=== PATIENT | female | born 1945 | race Two or more races ===

== ENCOUNTER → 2018-09-11 | Outpatient (CLI) | payer MEDICARE, OTHER ==
[2018-09-11 15:28] LABS: ABSOLUTE BASOPHILS # (AUTO) 0.1 10^3/uL (0.0-0.2); ABSOLUTE EOSINOPHILS # (AUTO) 0.5 10^3/uL (0.0-0.6); ABSOLUTE LYMPHOCYTES (AUTO) 2.2 10^3/uL (0.5-4.7); ABSOLUTE MONOCYTES (AUTO) 0.3 10^3/uL (0.1-1.4); ABSOLUTE NEUT (AUTO) 4.5 10^3/uL (1.7-8.2); BASOPHILS % (AUTO) 0.8 % (0-2); EOSINOPHILS % (AUTO) 6.4 % (0-6); HEMATOCRIT 34.6 % (36.0-47.0); HEMOGLOBIN 11.7 g/dL (12.0-15.5); LYMPHOCYTES % (AUTO) 28.7 % (13-45); MEAN CORPUSCULAR HEMOGLOBIN 29.4 pg (27.0-33.4); MEAN CORPUSCULAR HGB CONC 33.9 g/dL (32.0-36.0); MEAN CORPUSCULAR VOLUME 87 fl (80-97); MONOCYTES % (AUTO) 4.4 % (3-13); PLATELET COUNT 294 10^3/uL (150-450); RED BLOOD COUNT 3.99 10^6/uL (3.72-5.28); RED CELL DISTRIBUTION WIDTH 13.7 % (11.5-14.0); SEGMENTED NEUTROPHILS % (AUTO) 59.7 % (42-78); TOTAL CELLS COUNTED % (AUTO) 100 %; WHITE BLOOD COUNT 7.6 10^3/uL (4.0-10.5)
[2018-09-11 15:58] LABS: ALANINE AMINOTRANSFERASE 23 U/L (9-52); ALBUMIN 3.8 g/dL (3.5-5.0); ALKALINE PHOSPHATASE 347 U/L (38-126); ANION GAP 9 (5-19); ASPARTATE AMINO TRANSFERASE 42 U/L (14-36); BILIRUBIN,DIRECT 0.4 mg/dL (0.0-0.4); BILIRUBIN,TOTAL 0.5 mg/dL (0.2-1.3); BLOOD UREA NITROGEN 24 mg/dL (7-20); C-REACTIVE PROTEIN 19.3 mg/L (<10.0); CALCIUM 9.4 mg/dL (8.4-10.2); CARBON DIOXIDE 27 mmol/L (22-30); CHLORIDE 106 mmol/L (98-107); GLUCOSE 115 mg/dL (75-110); POTASSIUM 3.7 mmol/L (3.6-5.0); SODIUM 142.3 mmol/L (137-145); TOTAL PROTEIN 8.1 g/dL (6.3-8.2)
[2018-09-11 16:24] LABS: ERYTHROCYTE SEDIMENTATION RATE 29 mm/hr (0-30)
== END ==
LOC: WC 14:59
PROVIDERS: ATTEND Nurse Practitioner
DX: L97.222 Non-pressure chronic ulcer of left calf with fat layer exposed (principal)
CPT/HCPCS: 36415; 80053; 85025; 85652; 86140

== ENCOUNTER → 2018-09-11 | Outpatient (CLI) | payer MEDICARE, OTHER ==
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
== END ==
LOC: RAD 16:23
PROVIDERS: ATTEND Nurse Practitioner
DX: L97.222 Non-pressure chronic ulcer of left calf with fat layer exposed (principal)

== ENCOUNTER → 2018-09-17 | Outpatient (CLI) | payer MEDICARE, OTHER ==
--- NOTE | 2018-09-17 17:36 | XCELERA REPORT ---
[address] [address] Lower Extremity Venous Evaluation Procedure: A bilateral duplex scan of the lower extremity veins was performed. The evaluation included responses to compression and other maneuvers with patient in the supine and standing positions to assess venous insufficiency. Right Sided Venous Evaluation Deep venous system evaluatiion shows patent veins with no obstruction or significant reflux identified. Sapheno Femoral junction: no reflux. Femoral vein reflux: no reflux. Greater Saphenous vein, Proximal thigh: reflux: no reflux. Greater Saphenous vein, Distal thigh: reflux: no reflux. Greater Saphenous vein, Proximal below knee: reflux: no reflux. No significant Perforators identified. Left Sided Venous Evaluation Deep venous system evaluatiion shows patent veins with no obstruction or significant reflux identified. Sapheno Femoral junction: no reflux. Femoral vein reflux: no reflux. Greater Saphenous vein, Proximal thigh: reflux: no reflux. Greater Saphenous vein, Distal thigh: reflux: no reflux. Greater Saphenous vein, Proximal below knee: reflux: no reflux. No significant Perforators identified. Interpretation Summary No duplex evidence of DVT or obstruction in the bilateral lower extremities. No signuificant deep or superfiicial reflux identified. Name: GREGORIA MCARTHUR Age: 72 yrs Gender: Female : 1945 Patient Status: Outpatient Patient Location: Study Date: 09/17/2018 01:32 PM Reason For Study: ULCER Ordering Physician: EMMA MARTINS Performed By: Sean Nicholson : EMMA MARTINS > Ej Vines
--- NOTE | 2018-09-17 17:38 | XCELERA REPORT ---
[address] [address] Lower Extremity Arterial Evaluation Name: GREGORIA MCARTHUR Age: 72 yrs Gender: Female : 1945 Patient Status: Outpatient Patient Location: Study Date: 09/17/2018 01:08 PM Procedure: A color flow and duplex scan of the lower extremity arteries was performed bilaterally with velocity and waveform anaylsis. Reason For Study: ULCER Ordering Physician: EMMA MARTINS Performed By: Sean Nicholson Measurements and Calculations Right Left HEAD BOYS TENNIS COACH PSV 181.7 205.4 cm/sec Prox PFA PSV -88.2 -169.9cm/sec Prox SFA PSV 100.6 169.7 cm/sec Mid SFA PSV -121.4 -139.1cm/sec Dist SFA PSV -94.9 -95.4 cm/sec Prox Pop A PSV 88.6 100.9 cm/sec Mid TERESA PSV 102.1 cm/sec Dist TERESA PSV 72.2 cm/sec Mid CREDIT OFFICER PSV 124.5 cm/sec Dist CREDIT OFFICER PSV 79.1 cm/sec Ramos Pedis PSV 66.8 -100.7cm/sec Right Side Arterial Evaluation Normal velocity and triphasic waveforms noted from the Common Femoral artery to the infrageniculate vessels . Ankle Brachial index declined. Left Side Arterial Evaluation Normal velocity and triphasic waveforms noted from the Common Femoral artery to the infrageniculate vessels . Ankle Brachial index not done due to bandaging. Interpretation Summary No hemodynamically significant lesions in the bilateral lower extremities, on duplex imaging, at rest. : EMMA MARTINS > Ej Vines
== END ==
LOC: SP 12:27
PROVIDERS: ATTEND Nurse Practitioner
DX: L97.222 Non-pressure chronic ulcer of left calf with fat layer exposed (principal)
CPT/HCPCS: 93925; 93970

== ENCOUNTER 2018-09-26 21:29 | Emergency (ER) | payer MEDICARE, OTHER ==
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
[2018-09-27 02:41] VITALS: BP 142/68
--- NOTE | 2018-09-27 08:07 | EKG REPORT ---
SEVERITY:- BORDERLINE ECG - SINUS TACHYCARDIA PROBABLE LEFT ATRIAL ABNORMALITY BORDERLINE PROLONGED QT INTERVAL : Confirmed by: Halie Weber MD 27-Sep-2018 08:07:13
== END 2018-09-27 02:41 | disposition other institution (70) ==
LOC: ER 21:29
DX: R07.9 Chest pain, unspecified (principal); R51 Headache; Y04.2XXA Assault by strike against or bumped into by another person, initial encounter; Y92.009 Unspecified place in unspecified non-institutional (private) residence as the place of occurrence of the external cause; E78.00 Pure hypercholesterolemia, unspecified; I10 Essential (primary) hypertension; Z88.0 Allergy status to penicillin; Z88.3 Allergy status to other anti-infective agents; Z88.6 Allergy status to analgesic agent; Z90.49 Acquired absence of other specified parts of digestive tract
CPT/HCPCS: 70450; 71046; 72125; 93005; 93010; 99284

== ENCOUNTER → 2018-11-16 | Outpatient (CLI) | payer MEDICARE, OTHER ==
[2018-11-16 11:46] LABS: ABSOLUTE BASOPHILS # (AUTO) 0.1 10^3/uL (0.0-0.2); ABSOLUTE EOSINOPHILS # (AUTO) 0.9 10^3/uL (0.0-0.6); ABSOLUTE MONOCYTES (AUTO) 0.3 10^3/uL (0.1-1.4); BASOPHILS % (AUTO) 1.1 % (0-2); EOSINOPHILS % (AUTO) 12.9 % (0-6); HEMATOCRIT 35.9 % (36.0-47.0); HEMOGLOBIN 12.3 g/dL (12.0-15.5); LYMPHOCYTES % (AUTO) 26.8 % (13-45); MEAN CORPUSCULAR HEMOGLOBIN 29.4 pg (27.0-33.4); MEAN CORPUSCULAR HGB CONC 34.2 g/dL (32.0-36.0); MEAN CORPUSCULAR VOLUME 86 fl (80-97); MONOCYTES % (AUTO) 3.7 % (3-13); PLATELET COUNT 225 10^3/uL (150-450); RED BLOOD COUNT 4.17 10^6/uL (3.72-5.28); RED CELL DISTRIBUTION WIDTH 13.9 % (11.5-14.0); SEGMENTED NEUTROPHILS % (AUTO) 55.5 % (42-78); TOTAL CELLS COUNTED % (AUTO) 100 %; WHITE BLOOD COUNT 7.3 10^3/uL (4.0-10.5)
[2018-11-16 12:10] LABS: ALANINE AMINOTRANSFERASE 45 U/L (9-52); ALBUMIN 4.4 g/dL (3.5-5.0); ALKALINE PHOSPHATASE 462 U/L (38-126); ANION GAP 12 (5-19); ASPARTATE AMINO TRANSFERASE 57 U/L (14-36); BILIRUBIN,DIRECT 0.4 mg/dL (0.0-0.4); BILIRUBIN,TOTAL 0.7 mg/dL (0.2-1.3); BLOOD UREA NITROGEN 25 mg/dL (7-20); C-REACTIVE PROTEIN 12.8 mg/L (<10.0); CALCIUM 9.9 mg/dL (8.4-10.2); CARBON DIOXIDE 24 mmol/L (22-30); CHLORIDE 104 mmol/L (98-107); GLUCOSE 93 mg/dL (75-110); POTASSIUM 4.4 mmol/L (3.6-5.0); SODIUM 139.6 mmol/L (137-145); TOTAL PROTEIN 8.9 g/dL (6.3-8.2)
[2018-11-16 12:17] LABS: ERYTHROCYTE SEDIMENTATION RATE 85 mm/hr (0-30)
== END ==
LOC: WC 10:25
PROVIDERS: ATTEND Surgery
DX: L97.222 Non-pressure chronic ulcer of left calf with fat layer exposed (principal)
CPT/HCPCS: 36415; 80053; 85025; 85652; 86140

== ENCOUNTER → 2018-12-18 | Outpatient (CLI) | payer MEDICARE, OTHER ==
[2018-12-18 16:28] LABS: ABSOLUTE BASOPHILS # (AUTO) 0.1 10^3/uL (0.0-0.2); ABSOLUTE EOSINOPHILS # (AUTO) 0.7 10^3/uL (0.0-0.6); ABSOLUTE LYMPHOCYTES (AUTO) 1.4 10^3/uL (0.5-4.7); ABSOLUTE MONOCYTES (AUTO) 0.3 10^3/uL (0.1-1.4); ABSOLUTE NEUT (AUTO) 4.7 10^3/uL (1.7-8.2); BASOPHILS % (AUTO) 0.9 % (0-2); EOSINOPHILS % (AUTO) 9.5 % (0-6); HEMATOCRIT 35.1 % (36.0-47.0); HEMOGLOBIN 11.7 g/dL (12.0-15.5); LYMPHOCYTES % (AUTO) 19.7 % (13-45); MEAN CORPUSCULAR HEMOGLOBIN 28.9 pg (27.0-33.4); MEAN CORPUSCULAR HGB CONC 33.4 g/dL (32.0-36.0); MEAN CORPUSCULAR VOLUME 86 fl (80-97); MONOCYTES % (AUTO) 3.6 % (3-13); PLATELET COUNT 297 10^3/uL (150-450); RED BLOOD COUNT 4.06 10^6/uL (3.72-5.28); RED CELL DISTRIBUTION WIDTH 13.7 % (11.5-14.0); SEGMENTED NEUTROPHILS % (AUTO) 66.3 % (42-78); TOTAL CELLS COUNTED % (AUTO) 100 %
[2018-12-18 16:58] LABS: ALANINE AMINOTRANSFERASE 63 U/L (9-52); ALBUMIN 3.9 g/dL (3.5-5.0); ALKALINE PHOSPHATASE 605 U/L (38-126); ANION GAP 11 (5-19); ASPARTATE AMINO TRANSFERASE 83 U/L (14-36); BILIRUBIN,DIRECT 0.4 mg/dL (0.0-0.4); BILIRUBIN,TOTAL 0.4 mg/dL (0.2-1.3); BLOOD UREA NITROGEN 23 mg/dL (7-20); CALCIUM 9.4 mg/dL (8.4-10.2); CARBON DIOXIDE 24 mmol/L (22-30); CHLORIDE 106 mmol/L (98-107); GLUCOSE 106 mg/dL (75-110); SODIUM 140.6 mmol/L (137-145); TOTAL PROTEIN 8.8 g/dL (6.3-8.2)
[2018-12-18 17:16] LABS: ERYTHROCYTE SEDIMENTATION RATE 97 mm/hr (0-30)
== END ==
LOC: WC 15:13
PROVIDERS: ATTEND Nurse Practitioner Family
DX: L97.222 Non-pressure chronic ulcer of left calf with fat layer exposed (principal)
CPT/HCPCS: 36415; 80053; 85025; 85652; 86140

== ENCOUNTER 2019-02-20 08:50 | Inpatient (IN) | payer MEDICARE, OTHER ==
[2019-02-20 10:01] LABS: ABSOLUTE BASOPHILS # (AUTO) 0.1 10^3/uL (0.0-0.2); ABSOLUTE MONOCYTES (AUTO) 0.8 10^3/uL (0.1-1.4); BASOPHILS % (AUTO) 0.3 % (0-2); HEMATOCRIT 32.2 % (36.0-47.0); HEMOGLOBIN 10.7 g/dL (12.0-15.5); LYMPHOCYTES % (AUTO) 5.6 % (13-45); MEAN CORPUSCULAR HEMOGLOBIN 28.3 pg (27.0-33.4); MEAN CORPUSCULAR HGB CONC 33.3 g/dL (32.0-36.0); MEAN CORPUSCULAR VOLUME 85 fl (80-97); MONOCYTES % (AUTO) 4.2 % (3-13); PLATELET COUNT 467 10^3/uL (150-450); RED BLOOD COUNT 3.79 10^6/uL (3.72-5.28); RED CELL DISTRIBUTION WIDTH 13.6 % (11.5-14.0); SEGMENTED NEUTROPHILS % (AUTO) 89.9 % (42-78); TOTAL CELLS COUNTED % (AUTO) 100 %; WHITE BLOOD COUNT 17.8 10^3/uL (4.0-10.5)
[2019-02-20 10:17] LABS: ALANINE AMINOTRANSFERASE 40 U/L (9-52); ALBUMIN 3.1 g/dL (3.5-5.0); ALKALINE PHOSPHATASE 673 U/L (38-126); ANION GAP 11 (5-19); ASPARTATE AMINO TRANSFERASE 40 U/L (14-36); BILIRUBIN,TOTAL 1.5 mg/dL (0.2-1.3); BLOOD UREA NITROGEN 21 mg/dL (7-20); CALCIUM 8.7 mg/dL (8.4-10.2); CARBON DIOXIDE 24 mmol/L (22-30); CHLORIDE 96 mmol/L (98-107); GLUCOSE 117 mg/dL (75-110); POTASSIUM 3.8 mmol/L (3.6-5.0); SODIUM 131.4 mmol/L (137-145); TOTAL PROTEIN 7.7 g/dL (6.3-8.2)
[2019-02-20 11:07] LABS: VENOUS BLOOD BASE EXCESS -0.2 mmol/L; VENOUS BLOOD HCO3 22.8 mmol/L (20-32); VENOUS BLOOD PCO2 31.8 mmHg (35-63); VENOUS BLOOD PH 7.47 (7.30-7.42)
--- NOTE | 2019-02-20 11:32 | RADIOLOGY REPORT (SQ) ---
EXAM DESCRIPTION: ANKLE LEFT COMPLETE COMPLETED DATE/TIME: 02/20/2019 11:10 am REASON FOR STUDY: ulcer, ? osteo COMPARISON: 09/11/2018 NUMBER OF VIEWS: Three views. TECHNIQUE: AP, lateral, and oblique radiographic images acquired of the left ankle. LIMITATIONS: None. FINDINGS: MINERALIZATION: Osteopenia. BONES: Old trimalleolar fracture. Demineralized cortex adjacent to the medial malleolar screw heads. No acute findings. JOINTS: Intact. SOFT TISSUES: No foreign body. OTHER: No other significant finding. IMPRESSION: No evidence of osteomyelitis. TECHNICAL DOCUMENTATION: JOB ID: [id number] [employer]- All Rights Reserved Reading location - IP/workstation name: [email or web address]
--- NOTE | 2019-02-20 11:36 | RADIOLOGY REPORT (SQ) ---
EXAM DESCRIPTION: CHEST 2 VIEWS COMPLETED DATE/TIME: 02/20/2019 11:10 am REASON FOR STUDY: fever COMPARISON: 09/27/2018 NUMBER OF VIEWS: Two view. TECHNIQUE: Frontal and lateral radiographic views of the chest acquired. LIMITATIONS: None. FINDINGS: LUNGS AND PLEURA: No opacities, masses or pneumothorax. No pleural effusion. Attenuated bl ood vessels and flattened zia-diaphragms. MEDIASTINUM AND HILAR STRUCTURES: No masses. No contour abnormalities. HEART AND VASCULAR STRUCTURES: Heart normal in size and contour. No evidence for failure. BONES: No acute findings. HARDWARE: None in the chest. OTHER: No other significant finding. IMPRESSION: COPD. NO ACUTE RADIOGRAPHIC FINDING IN THE CHEST. TECHNICAL DOCUMENTATION: JOB ID: [id number] [employer]- All Rights Reserved Reading location - IP/workstation name: [email or web address]
[2019-02-20] MEDS ORDERED: CEFTRIAXONE 1 GM/D5W RTU 1 GM/50 ML RTUPB IV ONE (12:14)
[2019-02-20] MEDS ORDERED: VANCOMYCIN HCL INJ 1000 MG VIAL IV ONE (12:14)
--- NOTE | 2019-02-20 12:34 | ER Document Report ---
Entered by SILVER SHELL SCRIBE 02/20/19 1039 Acting as scribe for:WARREN GALAVIZ DO ED General - General Chief Complaint: Fever Stated Complaint: FEVER Time Seen by Provider: 02/20/19 10:15 TRAVEL OUTSIDE OF THE [place] IN LAST 30 DAYS: No - Related Data Allergies/Adverse Reactions: doxycycline [Doxycycline] Allergy (Verified 07/16/15 12:14) levofloxacin [From Levaquin] Allergy (Verified 07/16/15 12:13) Penicillins Allergy (Verified 07/14/15 09:12) acetaminophen [From Percocet] Adverse Reaction (Verified 02/17/16 20:18) hydrocodone [Hydrocodone] Adverse Reaction (Verified 07/16/15 12:14) ketorolac Adverse Reaction (Verified 07/16/15 12:14) oxycodone HCl [From Percocet] Adverse Reaction (Verified 02/17/16 20:18) tramadol HCl [From Ultram] Adverse Reaction (Verified 07/16/15 12:15) Hyclate Allergy (Uncoded 07/16/15 12:15) Past Medical History - Social History Smoking Status: Unknown if Ever Smoked Family History: Malignancy, Other Patient has suicidal ideation: No Patient has homicidal ideation: No - Past Medical History Cardiac Medical History: Reports: Hx Hypercholesterolemia, Hx Hypertension Renal/ Medical History: Denies: Hx Peritoneal Dialysis Musculoskeletal Medical History: Reports Hx Arthritis - low back pain R sciatica Past Surgical History: Reports: Hx Cholecystectomy, Hx Orthopedic Surgery - Immunizations Immunizations up to date: Yes Hx Diphtheria, Pertussis, Tetanus Vaccination: Yes Physical Exam - Vital signs Vitals: Temp Pulse Resp BP Pulse Ox 100.4 F 102 H 16 145/61 H 97 02/20/19 09:14 02/20/19 09:14 02/20/19 09:14 02/20/19 09:14 02/20/19 09:14 Course - Re-evaluation Re-evalutation: 02/20/19 12:31 CBC shows leukocytosis with a white count of 10.17.8, anemia with hemoglobin 10.7, platelets elevated at 467, venous blood gas is not acidotic, CMP shows hyponatremia with a sodium 131.4, BUN is slightly elevated at 21, glucose elevated but nonfasting at 117, lactic acid is normal, total and direct bilirubin both elevated as are AST and alk phos however all of these are fairly mild elevations, patient is not having any abdominal symptoms or tenderness, no nausea. Ankle x-ray does not reveal any evidence of osteomyelitis, chest x-ray is unremarkable. Patient is not septic, the obvious source of infection at this time is her left ankle however we are also getting a urinalysis just to double check. There is a moderate amount of foul-smelling drainage from the painful and obviously infected ulcer to the left ankle. Patient was discussed with Dr. Montero who agrees to admit the patient to his service on the medical floor. Treatment initiated with Rocephin and vancomycin. - Vital Signs Vital signs: Temp Pulse Resp BP Pulse Ox 100.4 F 102 H 16 145/61 H 97 02/20/19 09:14 02/20/19 09:14 02/20/19 09:14 02/20/19 09:14 02/20/19 09:14 - Laboratory Result Diagrams: 02/20/19 09:35 02/20/19 09:35 Laboratory results interpreted by me: 02/20/19 02/20/19 02/20/19 09:35 09:35 10:30 WBC 17.8 H Hgb 10.7 L Hct 32.2 L Plt Count 467 H Seg Neutrophils % 89.9 H Lymphocytes % 5.6 L Absolute Neutrophils 16.0 H VBG pH 7.47 H VBG pCO2 31.8 L Sodium 131.4 L Chloride 96 L BUN 21 H Est GFR (Non-Af Amer) 55 L Glucose 117 H Total Bilirubin 1.5 H Direct Bilirubin 1.0 H AST 40 H Alkaline Phosphatase 673 H Albumin 3.1 L Discharge - Discharge Clinical Impression: Cellulitis of left ankle Ulcer of left ankle Qualifiers: Non-pressure ulcer stage: with fat layer exposed Qualified Code(s): L97.322 - Non-pressure chronic ulcer of left ankle with fat layer exposed Condition: Fair Disposition: ADMITTED INPATIENT Admitting Provider: Kylah (Hospitalist) Unit Admitted: Medical Floor I personally performed the services described in the documentation, reviewed and edited the documentation which was dictated to the scribe in my presence, and it accurately records my words and actions.
[2019-02-20 13:05] LABS: APPEARANCE,URINE CLEAR; BILIRUBIN,URINE NEGATIVE (NEGATIVE); COLOR,URINE YELLOW; GLUCOSE, URINE NEGATIVE (NEGATIVE); KETONES,URINE TRACE mg/dL (NEGATIVE); LEUKOCYTE ESTERASE,URINE NEGATIVE (NEGATIVE); NITRITE,URINE NEGATIVE (NEGATIVE); PROTEIN,URINE NEGATIVE (NEGATIVE); URINE SPECIFIC GRAVITY 1.016
[2019-02-20] MEDS ORDERED: PROMETHAZINE HCL INJ 25 MG/1 ML VIAL IV PRN (13:17)
[2019-02-20] MEDS ORDERED: ONDANSETRON HCL INJ/PF 4 MG/2 ML SDV IV PRN (13:17)
[2019-02-20] MEDS ORDERED: OXYCODONE-ACETAMINOPHEN 5-325 MG TABLET PO PRN (13:17)
[2019-02-20] MEDS ORDERED: TEMAZEPAM 7.5 MG CAPSULE PO PRN (13:17)
[2019-02-20] MEDS ORDERED: IPRATROPIUM/ALBUTEROL 0.5-2.5 MG/3 ML AMPUL NEB PRN (13:17)
[2019-02-20] MEDS ORDERED: NORMAL SALINE 1000 ML 1,000 ML IV PRN (13:21)
[2019-02-20] MEDS ORDERED: HYDRALAZINE HCL INJ/PF 20 MG/1 ML SDV IV PRN (13:24)
[2019-02-20] MEDS ORDERED: VANCOMYCIN HCL 0 MG in DEXTROSE 5%-WATER 250 ML IV NR (13:30)
--- NOTE | 2019-02-20 13:51 | PDOC H&P ---
History of Present Illness Admission Date/PCP: 02/20/19 12:40 History of Present Illness: GREGORIA MCARTHUR is a 73 year old female past medical history of hypertension presented to ED complaining of on and off fever for the last 3 weeks and left lower extremity chronic wound. Stating that she has had left lower extremity anterior mas chronic ulcer and has been receiving wound care as outpatient. She is stating that it is not getting any better, and it is quite itchy with sharp pain upon moving. Apart from recent onset on and off fever over the last 3 weeks and chronic left lower extremity wound she reports to be in good health. She denies any fever, fatigue, shortness of breath, chest pain, nausea, vomiting, abdominal pain, diarrhea, constipation, cramps, history of CAD,diab etes, CVA or PAD. In ED she was found to have leukocytosis, fever and inspection of the wound show ed smelling wound distal mas venous discharge. Will start on vancomycin and ceftriaxone and hospital was consulted for admission. Left lower extremity x-ray was negative for osteomyelitis. Records show that patient has been seen at [facility] and has had bilateral lower extremity Doppler on 12/2018 which was negative for DVT or any reflexes. Past Medical History Cardiac Medical History: Reports: Hyperlipidema, Hypertension Musculoskeltal Medical History: Reports: Arthritis - low back pain R sciatica Past Surgical History Past Surgical History: Reports: Cholecystectomy, Orthopedic Surgery Social History Smoking Status: Unknown if Ever Smoked Frequency of Alcohol Use: None Hx Recreational Drug Use: No Hx Prescription Drug Abuse: No Family History Family History: Malignancy, Other Parental Family History Reviewed: Yes Children Family History Reviewed: Yes Sibling(s) Family History Reviewed.: Yes Medication/Allergy Allergies/Adverse Reactions: doxycycline [Doxycycline] Allergy (Verified 07/16/15 12:14) levofloxacin [From Levaquin] Allergy (Verified 07/16/15 12:13) Penicillins Allergy (Verified 07/14/15 09:12) acetaminophen [From Percocet] Adverse Reaction (Verified 02/17/16 20:18) hydrocodone [Hydrocodone] Adverse Reaction (Verified 07/16/15 12:14) ketorolac Adverse Reaction (Verified 07/16/15 12:14) oxycodone HCl [From Percocet] Adverse Reaction (Verified 02/17/16 20:18) tramadol HCl [From Ultram] Adverse Reaction (Verified 07/16/15 12:15) Hyclate Allergy (Uncoded 07/16/15 12:15) Review of Systems Review of Systems: as per hpi Physical Exam Vital Signs: Temp Pulse Resp BP Pulse Ox 100.4 F 102 H 16 145/61 H 97 02/20/19 09:14 02/20/19 09:14 02/20/19 09:14 02/20/19 09:14 02/20/19 09:14 Intake & Output 02/19/19 02/20/19 02/21/19 06:59 06:59 06:59 Intake Total 50 Output Total 250 Balance -200 General appearance: PRESENT: no acute distress, well-developed, well-nourished Head exam: PRESENT: atraumatic, normocephalic Eye exam: PRESENT: conjunctiva pink, EOMI, PERRLA. ABSENT: scleral icterus Ear exam: PRESENT: normal external ear exam Mouth exam: PRESENT: moist, tongue midline Neck exam: ABSENT: carotid bruit, JVD, lymphadenopathy, thyromegaly Respiratory exam: PRESENT: clear to auscultation sudhakar. ABSENT: rales, rhonchi, wheezes Cardiovascular exam: PRESENT: RRR. ABSENT: diastolic murmur, rubs, systolic murmur Pulses: PRESENT: normal dorsalis pedis pul Vascular exam: PRESENT: normal capillary refill GI/Abdominal exam: PRESENT: normal bowel sounds, soft. ABSENT: distended, guarding, mass, organolmegaly, rebound, tenderness Rectal exam: PRESENT: deferred Extremities exam: PRESENT: full ROM. ABSENT: calf tenderness, clubbing, pedal edema Neurological exam: PRESENT: alert, awake, oriented to person, oriented to place, oriented to time, oriented to situation, CN II-XII grossly intact. ABSENT: motor sensory deficit Psychiatric exam: PRESENT: appropriate affect, normal mood. ABSENT: homicidal ideation, suicidal ideation Skin exam: PRESENT: dry, warm, other - Left distal mas ulcerated and infected wound about 10 x 10 cm, foul-smelling with greenish discharge.. ABSENT: cyanosis, rash Results Laboratory Results: 02/20/19 09:35 02/20/19 09:35 02/20/19 02/20/19 02/20/19 09:35 09:35 09:35 WBC 17.8 H RBC 3.79 Hgb 10.7 L Hct 32.2 L MCV 85 MCH 28.3 MCHC 33.3 RDW 13.6 Plt Count 467 H Seg Neutrophils % 89.9 H Lymphocytes % 5.6 L Monocytes % 4.2 Eosinophils % 0.0 Basophils % 0.3 Absolute Neutrophils 16.0 H Absolute Lymphocytes 1.0 Absolute Monocytes 0.8 Absolute Eosinophils 0.0 Absolute Basophils 0.1 VBG pH VBG pCO2 VBG HCO3 VBG Base Excess Sodium 131.4 L Potassium 3.8 Chloride 96 L Carbon Dioxide 24 Anion Gap 11 BUN 21 H Creatinine 0.99 Est GFR ( Amer) > 60 Est GFR (Non-Af Amer) 55 L Glucose 117 H Lactic Acid Calcium 8.7 Total Bilirubin 1.5 H AST 40 H ALT 40 Alkaline Phosphatase 673 H Total Protein 7.7 Albumin 3.1 L Lipase 109.2 Urine Color Urine Appearance Urine pH Ur Specific [place] Urine Protein Urine Glucose (UA) Urine Ketones Urine Blood Urine Nitrite Ur Leukocyte Esterase Urine WBC (Auto) Urine RBC (Auto) 02/20/19 02/20/19 02/20/19 10:30 10:30 12:45 WBC RBC Hgb Hct MCV MCH MCHC RDW Plt Count Seg Neutrophils % Lymphocytes % Monocytes % Eosinophils % Basophils % Absolute Neutrophils Absolute Lymphocytes Absolute Monocytes Absolute Eosinophils Absolute Basophils VBG pH 7.47 H VBG pCO2 31.8 L VBG HCO3 22.8 VBG Base Excess -0.2 Sodium Potassium Chloride Carbon Dioxide Anion Gap BUN Creatinine Est GFR ( Amer) Est GFR (Non-Af Amer) Glucose Lactic Acid 0.9 Calcium Total Bilirubin AST ALT Alkaline Phosphatase Total Protein Albumin Lipase Urine Color YELLOW Urine Appearance CLEAR Urine pH 6.0 Ur Specific [place] 1.016 Urine Protein NEGATIVE Urine Glucose (UA) NEGATIVE Urine Ketones TRACE H Urine Blood NEGATIVE Urine Nitrite NEGATIVE Ur Leukocyte Esterase NEGATIVE Urine WBC (Auto) 3 Urine RBC (Auto) 1 Impressions: Chest X-Ray 02/20/19 10:16 IMPRESSION: COPD. NO ACUTE RADIOGRAPHIC FINDING IN THE CHEST. Ankle X-Ray 02/20/19 10:56 IMPRESSION: No evidence of osteomyelitis. Assessment and Plan - Diagnosis (1) Infected ulcer of skin Is this a current diagnosis for this admission?: No Plan: Infection of chronic wound of the left anterior mas and ankle. Likely polymicrobial from skin evin. X-ray negative for osteomyelitis. If in doubt will obtain MRI of left lower extremity. Will start wound care and IV ceftriaxone and vancomycin narrow spectrum based on results of C/S. Follow wound on blood cultures. 12/2018 patient had bilateral lower extremity venous Doppler which was negative for any DVT or reflux. Pending hemoglobin A1c, lipid,, CRP and ESR. (3) Fever Is this a current diagnosis for this admission?: No Plan: Leukocytosis likely due to infected left lower extremity wounds. Continue empiric IV antibiotics, follow wound and blood cultures. (4) HTN (hypertension) Is this a current diagnosis for this admission?: No Plan: Takes amlodipine at home. Restart home meds. Adjust meds as needed. IV hydr alazine as needed.
[2019-02-20 14:15] LABS: CHOLESTEROL 216.92 mg/dL (0-200); TRIGLYCERIDES 58 mg/dL (<150)
[2019-02-20 14:26] LABS: DIRECT LDL 163 mg/dL (<100)
--- NOTE | 2019-02-20 14:41 | ER Document Report ---
Entered by SILVER SHELL SCRIBE 02/20/19 1406 Acting as scribe for:WARREN GALAVIZ DO ED General - General Chief Complaint: Fever Stated Complaint: FEVER Time Seen by Provider: 02/20/19 10:15 Mode of Arrival: Ambulatory Information source: Patient Notes: 73-year-old female that presents to the emergency department today with complaints of intermittent fevers with associated headaches for the last x3 weeks. Patient mentions an ulcer to her left lower extremity that she appears unconcerned with stating that she has been following up with wound care for this. Patient denies any nausea, vomiting, diarrhea, or urinary symptoms. TRAVEL OUTSIDE OF THE [place] IN LAST 30 DAYS: No - Related Data Allergies/Adverse Reactions: doxycycline [Doxycycline] Allergy (Verified 07/16/15 12:14) levofloxacin [From Levaquin] Allergy (Verified 07/16/15 12:13) Penicillins Allergy (Verified 07/14/15 09:12) acetaminophen [From Percocet] Adverse Reaction (Verified 02/17/16 20:18) hydrocodone [Hydrocodone] Adverse Reaction (Verified 07/16/15 12:14) ketorolac Adverse Reaction (Verified 07/16/15 12:14) oxycodone HCl [From Percocet] Adverse Reaction (Verified 02/17/16 20:18) tramadol HCl [From Ultram] Adverse Reaction (Verified 07/16/15 12:15) Hyclate Allergy (Uncoded 07/16/15 12:15) Past Medical History - General Information source: Patient - Social History Smoking Status: Unknown if Ever Smoked Frequency of alcohol use: None Drug Abuse: None Lives with: Family Family History: Reviewed & Not Pertinent, Malignancy, Other Patient has suicidal ideation: No Patient has homicidal ideation: No - Past Medical History Cardiac Medical History: Reports: Hx Hypercholesterolemia, Hx Hypertension Musculoskeletal Medical History: Reports Hx Arthritis - low back pain R sciatica Past Surgical History: Reports: Hx Cholecystectomy, Hx Orthopedic Surgery - Immunizations Immunizations up to date: Yes Hx Diphtheria, Pertussis, Tetanus Vaccination: Yes Review of Systems - Review of Systems Constitutional: See HPI, Fever EENT: No symptoms reported Cardiovascular: No symptoms reported Respiratory: No symptoms reported Gastrointestinal: denies: Diarrhea, Nausea, Vomiting Genitourinary: denies: Burning, Dysuria Female Genitourinary: No symptoms reported Musculoskeletal: No symptoms reported Skin: No symptoms reported Hematologic/Lymphatic: No symptoms reported Neurological/Psychological: See HPI, Headaches -: Yes All other systems reviewed and negative Physical Exam - Vital signs Vitals: Temp Pulse Resp BP Pulse Ox 100.4 F 102 H 16 145/61 H 97 02/20/19 09:14 02/20/19 09:14 02/20/19 09:14 02/20/19 09:14 02/20/19 09:14 - Notes Notes: PHYSICAL EXAM GENERAL: Alert, interacts well. No acute distress. HEAD: Normocephalic, atraumatic. EYES: Pupils equal, round, and reactive to light. Extraocular movements intact. ENT: Oral mucosa moist, tongue midline. NECK: Full range of motion. Supple. Trachea midline. LUNGS: Clear to auscultation bilaterally, no wheezes, rales, or rhonchi. No respiratory distress. HEART: Regular rate and rhythm. No murmurs, gallops, or rubs. ABDOMEN: Soft, non-tender. Non-distended. Bowel sounds present in all 4 quadrants. No guarding, rigidity, or rebound. EXTREMITIES: Moves all 4 extremities spontaneously. No edema, radial and dorsalis pedis pulses 2/4 bilaterally. No cyanosis. NEUROLOGICAL: Alert and oriented x3. Normal speech. PSYCH: Normal affect, normal mood. SKIN: 9.5cm x 7cm foul smelling wound that appears somewhat punched out to the left medial malleolus tibia. Green colored discharge from wound. Center of wound appears somewhat necrotic. There is surrounding erythema with warmth. It is tender palpation. There is no lymphangitic streaking. Course - Vital Signs Vital signs: Temp Pulse Resp BP Pulse Ox 100.4 F 102 H 16 145/61 H 97 02/20/19 09:14 02/20/19 09:14 02/20/19 09:14 02/20/19 09:14 02/20/19 09:14 - Laboratory Result Diagrams: 02/20/19 09:35 02/20/19 09:35 Laboratory results interpreted by me: 02/20/19 02/20/19 02/20/19 09:35 09:35 09:35 WBC 17.8 H Hgb 10.7 L Hct 32.2 L Plt Count 467 H Seg Neutrophils % 89.9 H Lymphocytes % 5.6 L Absolute Neutrophils 16.0 H VBG pH VBG pCO2 Sodium 131.4 L Chloride 96 L BUN 21 H Est GFR (Non-Af Amer) 55 L Glucose 117 H Total Bilirubin 1.5 H Direct Bilirubin 1.0 H AST 40 H Alkaline Phosphatase 673 H Albumin 3.1 L Cholesterol 216.92 H LDL Cholesterol Direct 163 H HDL Cholesterol 22 L 02/20/19 10:30 WBC Hgb Hct Plt Count Seg Neutrophils % Lymphocytes % Absolute Neutrophils VBG pH 7.47 H VBG pCO2 31.8 L Sodium Chloride BUN Est GFR (Non-Af Amer) Glucose Total Bilirubin Direct Bilirubin AST Alkaline Phosphatase Albumin Cholesterol LDL Cholesterol Direct HDL Cholesterol Discharge - Discharge Clinical Impression: Cellulitis of left ankle Ulcer of left ankle Qualifiers: Non-pressure ulcer stage: with fat layer exposed Qualified Code(s): L97.322 - Non-pressure chronic ulcer of left ankle with fat layer exposed Condition: Fair Disposition: ADMITTED INPATIENT I personally performed the services described in the documentation, reviewed and edited the documentation which was dictated to the scribe in my presence, and it accurately records my words and actions.
[2019-02-20] MEDS: NORMAL SALINE 1000 ML 1,000 ML IV PRN (17:29)
[2019-02-20] MEDS ORDERED: ACETAMINOPHEN WITH CODEINE #3 TABLET PO PRN (23:38)
[2019-02-21] MEDS: NORMAL SALINE 1000 ML 1,000 ML IV PRN ×2 (03:10→16:42)
[2019-02-21 06:39] LABS: ABSOLUTE BASOPHILS # (AUTO) 0.1 10^3/uL (0.0-0.2); ABSOLUTE LYMPHOCYTES (AUTO) 1.3 10^3/uL (0.5-4.7); ABSOLUTE MONOCYTES (AUTO) 1.1 10^3/uL (0.1-1.4); ABSOLUTE NEUT (AUTO) 14.9 10^3/uL (1.7-8.2); BASOPHILS % (AUTO) 0.3 % (0-2); EOSINOPHILS % (AUTO) 0.1 % (0-6); HEMATOCRIT 29.7 % (36.0-47.0); HEMOGLOBIN 9.8 g/dL (12.0-15.5); LYMPHOCYTES % (AUTO) 7.2 % (13-45); MEAN CORPUSCULAR HEMOGLOBIN 28.2 pg (27.0-33.4); MEAN CORPUSCULAR HGB CONC 33.2 g/dL (32.0-36.0); MEAN CORPUSCULAR VOLUME 85 fl (80-97); MONOCYTES % (AUTO) 6.6 % (3-13); PLATELET COUNT 413 10^3/uL (150-450); RED BLOOD COUNT 3.49 10^6/uL (3.72-5.28); RED CELL DISTRIBUTION WIDTH 13.5 % (11.5-14.0); SEGMENTED NEUTROPHILS % (AUTO) 85.8 % (42-78); TOTAL CELLS COUNTED % (AUTO) 100 %; WHITE BLOOD COUNT 17.4 10^3/uL (4.0-10.5)
[2019-02-21 06:57] LABS: ANION GAP 9 (5-19); BLOOD UREA NITROGEN 19 mg/dL (7-20); CALCIUM 8.6 mg/dL (8.4-10.2); CARBON DIOXIDE 23 mmol/L (22-30); CHLORIDE 103 mmol/L (98-107); GLUCOSE 110 mg/dL (75-110); POTASSIUM 4.1 mmol/L (3.6-5.0)
[2019-02-21] MEDS: PANTOPRAZOLE SODIUM 40 MG TABLET.DR PO SCH (06:57)
[2019-02-21] MEDS: ENOXAPARIN SODIUM INJ 40 MG/0.4 ML DISP.SYRIN SUBCUT SCH (09:37)
[2019-02-21] MEDS: CEFTRIAXONE SODIUM 1,000 MG in DEXTROSE 5%-WATER 50 ML IV SCH (09:37)
[2019-02-21] MEDS: DOCUSATE SODIUM 100 MG CAPSULE PO SCH (09:38)
[2019-02-21] MEDS: AMLODIPINE BESYLATE 5 MG TABLET PO SCH (09:38)
[2019-02-21] MEDS ORDERED: CEFTRIAXONE 1 GM/D5W RTU 1 GM/50 ML RTUPB IV SCH (10:00)
[2019-02-21] MEDS: VANCOMYCIN HCL 1,000 MG in DEXTROSE 5%-WATER 250 ML IV SCH (12:35)
--- NOTE | 2019-02-21 14:00 | PDOC PROGRESS REPORT ---
Subjective Progress Note for:: 02/21/19 Subjective:: JAKI MCARTHUR is a 73 year old female past medical history of hypertension presented to ED complaining of on and off fever for the last 3 weeks and left lower extremity chronic wound. Stating that she has had left lower extremity anterior mas chronic ulcer and has been receiving wound care as outpatient. She is stating that it is not getting any better, and it is quite itchy with sharp pain upon moving. Apart from recent onset on and off fever over the last 3 weeks and chronic left lower extremity wound she reports to be in good health. She denies any fever, fatigue, shortness of breath, chest pain, nausea, vomiting, abdominal pain, diarrhea, constipation, cramps, history of CAD,diabetes, CVA or PAD. In ED she was found to have leukocytosis, fever and inspection of the wound showed smelling wound distal mas venous discharge. Will start on vancomycin and ceftriaxone and hospital was consulted for admission. Left lower extremity x-ray was negative for osteomyelitis. Records show that patient has been seen at [facility] and has had sudhakar ateral lower extremity Doppler on 12/2018 which was negative for DVT or any reflexes. 02/21/2019. No acute events overnight. Denies any fever, chills, nausea, vomiting, diarrhea, constipation or any urinary symptoms. P.o. tolerant and having normal bowel and bladder. Blood cultures pending at surgery has been consulted for evaluation of the left ankle. Reason For Visit: LLE INFECTED WOUND Physical Exam Vital Signs: Temp Pulse Resp BP Pulse Ox 97.6 F 76 17 126/55 H 98 02/21/19 11:28 02/21/19 11:28 02/21/19 11:28 02/21/19 11:28 02/21/19 11:28 Intake & Output 02/20/19 02/21/19 02/22/19 06:59 06:59 06:59 Intake Total 1318 320 Output Total 250 650 Balance 1068 -330 Weight 58.967 kg General appearance: PRESENT: no acute distress, well-developed, well-nourished Head exam: PRESENT: atraumatic, normocephalic Respiratory exam: PRESENT: clear to auscultation sudhakar. ABSENT: rales, rhonchi, wheezes Cardiovascular exam: PRESENT: RRR. ABSENT: diastolic murmur, rubs, systolic murmur GI/Abdominal exam: PRESENT: normal bowel sounds, soft. ABSENT: distended, guarding, mass, organolmegaly, rebound, tenderness Extremities exam: PRESENT: full ROM, other - Left distal mas and ankle infected wound, foul-smelling with drainage.. ABSENT: calf tenderness, clubbing, pedal edema Neurological exam: PRESENT: alert, awake, oriented to person, oriented to place, oriented to time, oriented to situation, CN II-XII grossly intact. ABSENT: motor sensory deficit Results Laboratory Results: 02/21/19 06:05 02/21/19 06:05 02/20/19 02/20/19 02/21/19 09:35 09:35 06:05 WBC 17.4 H RBC 3.49 L Hgb 9.8 L Hct 29.7 L MCV 85 MCH 28.2 MCHC 33.2 RDW 13.5 Plt Count 413 Seg Neutrophils % 85.8 H Lymphocytes % 7.2 L Monocytes % 6.6 Eosinophils % 0.1 Basophils % 0.3 Absolute Neutrophils 14.9 H Absolute Lymphocytes 1.3 Absolute Monocytes 1.1 Absolute Eosinophils 0.0 Absolute Basophils 0.1 Sodium Potassium Chloride Carbon Dioxide Anion Gap BUN Creatinine Est GFR ( Amer) Est GFR (Non-Af Amer) Glucose Calcium Magnesium C-Reactive Protein 195.3 H Triglycerides 58 Cholesterol 216.92 H LDL Cholesterol Direct 163 H VLDL Cholesterol 12.0 HDL Cholesterol 22 L 02/21/19 06:05 WBC RBC Hgb Hct MCV MCH MCHC RDW Plt Count Seg Neutrophils % Lymphocytes % Monocytes % Eosinophils % Basophils % Absolute Neutrophils Absolute Lymphocytes Absolute Monocytes Absolute Eosinophils Absolute Basophils Sodium 135.0 L Potassium 4.1 Chloride 103 Carbon Dioxide 23 Anion Gap 9 BUN 19 Creatinine 0.86 Est GFR ( Amer) > 60 Est GFR (Non-Af Amer) > 60 Glucose 110 Calcium 8.6 Magnesium 2.0 C-Reactive Protein Triglycerides Cholesterol LDL Cholesterol Direct VLDL Cholesterol HDL Cholesterol Impressions: Chest X-Ray 02/20/19 10:16 IMPRESSION: COPD. NO ACUTE RADIOGRAPHIC FINDING IN THE CHEST. Ankle X-Ray 02/20/19 10:56 IMPRESSION: No evidence of osteomyelitis. Assessment and Plan - Diagnosis (1) Infected ulcer of skin Is this a current diagnosis for this admission?: No Plan: Infection of chronic wound of the left anterior mas and ankle. Likely polymicrobial from skin evin. X-ray negative for osteomyelitis. If in doubt will obtain MRI of left lower ext remity. Day 2 of IV ceftriaxone and vancomycin. Continue antibiotics, follow blood culture. Surgery consulted. 12/2018 patient had bilateral lower extremity venous Doppler which was negative for any DVT or reflux. A1c 5.1. CRP 195.3, ESR 118. (2) Cellulitis of left ankle Is this a current diagnosis for this admission?: Yes Plan: As above. (3) Fever Is this a current diagnosis for this admission?: No Plan: T-max 98.4. Leukocytosis improving , likely due to infected left lower extremity wounds. Continue empiric IV antibiotics, follow wound and blood cultures. (4) HTN (hypertension) Is this a current diagnosis for this admission?: No Plan: Euvolemic, normotensive. Continue amlodipine 5 mg p.o. daily. Adjust meds as needed. IV hydralazine as needed. (5) Hyperlipidemia Is this a current diagnosis for this admission?: Yes Plan: Start on atorvastatin 20 mg p.o. daily. Diet and lifestyle modification advised. Outpatient follow-up with PCP for LFT evaluation.
[2019-02-21] MEDS ORDERED: ONDANSETRON HCL INJ/PF 4 MG/2 ML SDV IV PRN (14:30)
[2019-02-21] MEDS: ACETAMINOPHEN 325 MG TABLET PO PRN (16:39)
--- NOTE | 2019-02-21 17:09 | OPERATIVE REPORT E ---
Operative Report NAME: GREGORIA MACRTHUR : 1945 AGE: 73Y DATE OF SURGERY: 02/21/2019 ROOM: 206 PREOPERATIVE DIAGNOSIS: INFECTED LEFT LOWER LEG WOUND ON THE LEFT [place] MEDIAL SIDE WITH SCAB. POSTOPERATIVE DIAGNOSIS: INFECTED LEFT LOWER LEG WOUND ON THE LEFT [place] MEDIAL SIDE WITH SCAB. OPERATION: DEBRIDEMENT OF LEFT LOWER LEG WOUND WITH REMOVAL OF 4 X 5 CM SCAB OR FULL-THICKNESS SKIN. SURGEON: RAZ THACKER M.D. PROCEDURE: The patient was placed in the supine position and the left lower leg wound identified. There was a dark discolored scab that was partially avulsed. This was then sharply removed with use of scissors. There was not any active bleeding noted. There was some dry exudate in those areas of the wound. This roughly measured about 11 cm long x about 8 cm wide. The patient had good palpable pulse on the left dorsalis pedis artery. The patient is also being followed up at the wound care center. The nurse was instructed to apply wet to dry dressings with saline every 12 hours. Continue with IV antibiotics for the next 24-48 hours. DICTATING PHYSICIAN: RAZ THACKER M.D. [id number] PHY#: [id number] ID: [id number] JOB#: [id number] ACCT: [id number] cc:RAZ THACKER M.D. >
[2019-02-21] MEDS: ATORVASTATIN CALCIUM 20 MG TABLET PO SCH (22:06)
[2019-02-22] MEDS: ACETAMINOPHEN 325 MG TABLET PO PRN (05:03)
[2019-02-22] MEDS: PANTOPRAZOLE SODIUM 40 MG TABLET.DR PO SCH (05:03)
[2019-02-22 07:05] LABS: ABSOLUTE BASOPHILS # (AUTO) 0.1 10^3/uL (0.0-0.2); ABSOLUTE LYMPHOCYTES (AUTO) 1.2 10^3/uL (0.5-4.7); ABSOLUTE MONOCYTES (AUTO) 0.6 10^3/uL (0.1-1.4); ABSOLUTE NEUT (AUTO) 15.5 10^3/uL (1.7-8.2); BASOPHILS % (AUTO) 0.4 % (0-2); EOSINOPHILS % (AUTO) 0.1 % (0-6); HEMATOCRIT 29.4 % (36.0-47.0); HEMOGLOBIN 9.9 g/dL (12.0-15.5); LYMPHOCYTES % (AUTO) 6.7 % (13-45); MEAN CORPUSCULAR HEMOGLOBIN 28.4 pg (27.0-33.4); MEAN CORPUSCULAR HGB CONC 33.6 g/dL (32.0-36.0); MEAN CORPUSCULAR VOLUME 85 fl (80-97); MONOCYTES % (AUTO) 3.7 % (3-13); PLATELET COUNT 429 10^3/uL (150-450); RED BLOOD COUNT 3.48 10^6/uL (3.72-5.28); RED CELL DISTRIBUTION WIDTH 13.4 % (11.5-14.0); SEGMENTED NEUTROPHILS % (AUTO) 89.1 % (42-78); TOTAL CELLS COUNTED % (AUTO) 100 %; WHITE BLOOD COUNT 17.3 10^3/uL (4.0-10.5)
[2019-02-22 07:25] LABS: ALANINE AMINOTRANSFERASE 32 U/L (9-52); ALBUMIN 2.6 g/dL (3.5-5.0); ALKALINE PHOSPHATASE 595 U/L (38-126); ANION GAP 10 (5-19); ASPARTATE AMINO TRANSFERASE 34 U/L (14-36); BILIRUBIN,DIRECT 0.6 mg/dL (0.0-0.4); BILIRUBIN,TOTAL 0.9 mg/dL (0.2-1.3); BLOOD UREA NITROGEN 13 mg/dL (7-20); CALCIUM 8.1 mg/dL (8.4-10.2); CARBON DIOXIDE 21 mmol/L (22-30); CHLORIDE 100 mmol/L (98-107); GLUCOSE 113 mg/dL (75-110); POTASSIUM 3.6 mmol/L (3.6-5.0); SODIUM 130.9 mmol/L (137-145); TOTAL PROTEIN 6.8 g/dL (6.3-8.2)
[2019-02-22] MEDS: CEFTRIAXONE SODIUM 1,000 MG in DEXTROSE 5%-WATER 50 ML IV SCH (11:37)
[2019-02-22] MEDS: AMLODIPINE BESYLATE 5 MG TABLET PO SCH (11:38)
[2019-02-22] MEDS: ENOXAPARIN SODIUM INJ 40 MG/0.4 ML DISP.SYRIN SUBCUT SCH (11:38)
[2019-02-22] MEDS: DOCUSATE SODIUM 100 MG CAPSULE PO SCH (11:38)
[2019-02-22] MEDS: VANCOMYCIN HCL 1,000 MG in DEXTROSE 5%-WATER 250 ML IV SCH (11:39)
--- NOTE | 2019-02-22 12:29 | PDOC PROGRESS REPORT ---
Subjective Progress Note for:: 02/22/19 Subjective:: JAKI MCARTHUR is a 73 year old female past medical history of hypertension presented to ED complaining of on and off fever for the last 3 weeks and left lower extremity chronic wound. Stating that she has had left lower extremity anterior mas chronic ulcer and has been receiving wound care as outpatient. She is stating that it is not getting any better, and it is quite itchy with sharp pain upon moving. Apart from recent onset on and off fever over the last 3 weeks and chronic left lower extremity wound she reports to be in good health. She denies any fever, fatigue, shortness of breath, chest pain, nausea, vomiting, abdominal pain, diarrhea, constipation, cramps, history of CAD,diabetes, CVA or PAD. In ED she was found to have leukocytosis, fever and inspection of the wound showed smelling wound distal mas venous discharge. Will start on vancomycin and ceftriaxone and hospital was consulted for admission. Left lower extremity x-ray was negative for osteomyelitis. Records show that patient has been seen at [facility] and has had sudhakar ateral lower extremity Doppler on 12/2018 which was negative for DVT or any reflexes. 02/21/2019. No acute events overnight. Denies any fever, chills, nausea, vomiting, diarrhea, constipation or any urinary symptoms. P.o. tolerant and having normal bowel and bladder. Blood cultures pending at surgery has been consulted for evaluation of the left ankle. 02/22/2019. No acute events overnight. Denies any fever, chills, nausea, vomiting, diarrhea, constipation or any urinary symptoms. Right lower extremity pain has improved. Reason For Visit: LLE INFECTED WOUND Physical Exam Vital Signs: Temp Pulse Resp BP Pulse Ox 98.0 F 75 20 125/49 L 97 02/22/19 08:13 02/22/19 08:13 02/22/19 08:13 02/22/19 08:13 02/22/19 08:13 Intake & Output 02/21/19 02/22/19 02/23/19 06:59 06:59 06:59 Intake Total 1318 2190 Output Total 250 1500 Balance 1068 690 Weight 58.967 kg General appearance: PRESENT: no acute distress, well-developed, well-nourished Head exam: PRESENT: atraumatic, normocephalic Eye exam: PRESENT: conjunctiva pink, EOMI, PERRLA. ABSENT: scleral icterus Ear exam: PRESENT: normal external ear exam Mouth exam: PRESENT: moist, tongue midline Neck exam: ABSENT: carotid bruit, JVD, lymphadenopathy, thyromegaly Respiratory exam: PRESENT: clear to auscultation sudhakar. ABSENT: rales, rhonchi, wheezes Cardiovascular exam: PRESENT: RRR. ABSENT: diastolic murmur, rubs, systolic murmur Pulses: PRESENT: normal dorsalis pedis pul Vascular exam: PRESENT: normal capillary refill GI/Abdominal exam: PRESENT: normal bowel sounds, soft. ABSENT: distended, guarding, mass, organolmegaly, rebound, tenderness Rectal exam: PRESENT: deferred Extremities exam: PRESENT: full ROM. ABSENT: calf tenderness, clubbing, pedal edema Musculoskeletal exam: PRESENT: other - Right lower extremity anterior medial aspect of the ankle wound looks clean, with granulation tissue. Foul smell has resolved. No active discharge. Neurological exam: PRESENT: alert, awake, oriented to person, oriented to place, oriented to time, oriented to situation, CN II-XII grossly intact. ABSENT: motor sensory deficit Psychiatric exam: PRESENT: appropriate affect, normal mood. ABSENT: homicidal ideation, suicidal ideation Skin exam: PRESENT: dry, intact, warm. ABSENT: cyanosis, rash Results Laboratory Results: 02/22/19 06:09 02/22/19 06:09 02/22/19 02/22/19 02/22/19 05:31 06:09 06:09 WBC 17.3 H RBC 3.48 L Hgb 9.9 L Hct 29.4 L MCV 85 MCH 28.4 MCHC 33.6 RDW 13.4 Plt Count 429 Seg Neutrophils % 89.1 H Lymphocytes % 6.7 L Monocytes % 3.7 Eosinophils % 0.1 Basophils % 0.4 Absolute Neutrophils 15.5 H Absolute Lymphocytes 1.2 Absolute Monocytes 0.6 Absolute Eosinophils 0.0 Absolute Basophils 0.1 Sodium Potassium Chloride Carbon Dioxide Anion Gap BUN Creatinine Est GFR ( Amer) Est GFR (Non-Af Amer) Glucose Calcium Magnesium 1.7 Total Bilirubin AST ALT Alkaline Phosphatase Total Protein Albumin Stool Occult Blood NEGATIVE 02/22/19 06:09 WBC RBC Hgb Hct MCV MCH MCHC RDW Plt Count Seg Neutrophils % Lymphocytes % Monocytes % Eosinophils % Basophils % Absolute Neutrophils Absolute Lymphocytes Absolute Monocytes Absolute Eosinophils Absolute Basophils Sodium 130.9 L Potassium 3.6 Chloride 100 Carbon Dioxide 21 L Anion Gap 10 BUN 13 Creatinine 0.72 Est GFR ( Amer) > 60 Est GFR (Non-Af Amer) > 60 Glucose 113 H Calcium 8.1 L Magnesium Total Bilirubin 0.9 AST 34 ALT 32 Alkaline Phosphatase 595 H Total Protein 6.8 Albumin 2.6 L Stool Occult Blood 02/20/19 12:45 Clean Catch Midstream Urine Culture - Final Group B Beta Streptococcus Impressions: Chest X-Ray 02/20/19 10:16 IMPRESSION: COPD. NO ACUTE RADIOGRAPHIC FINDING IN THE CHEST. Ankle X-Ray 02/20/19 10:56 IMPRESSION: No evidence of osteomyelitis. Assessment and Plan - Diagnosis (1) Infected ulcer of skin Is this a current diagnosis for this admission?: No Plan: Infection of chronic wound of the left anterior mas and ankle. Wound culture growing gram-negative rods and gram-positive cocci in clusters. Pending sensitivity. X-ray negative for osteomyelitis. If in doubt will obtain MRI of left lower extremity. Day 3 of IV ceftriaxone and vancomycin. Continue antibiotics, follow blood culture. Surgery has done a bedside I&D and recommending IV antibiotics for and wound care right now. 12/2018 patient had bilateral lower extremity venous Doppler which was negative for any DVT or reflux. A1c 5.1. CRP 195.3, ESR 118. (2) Cellulitis of left ankle Is this a current diagnosis for this admission?: Yes Plan: As above. (3) Fever Is this a current diagnosis for this admission?: No Plan: Afebrile. Leukocytosis improving , likely due to infected left lower extremity wounds. Continue empiric IV antibiotics, follow wound and blood cultures. (4) HTN (hypertension) Is this a current diagnosis for this admission?: No Plan: Euvolemic, normotensive. Continue amlodipine 5 mg p.o. daily. Adjust meds as needed. IV hydralazine as needed. (5) Hyperlipidemia Is this a current diagnosis for this admission?: Yes Plan: Start on atorvastatin 20 mg p.o. daily. Diet and lifestyle modification advised. Outpatient follow-up with PCP for LFT evaluation.
--- NOTE | 2019-02-22 18:43 | PDOC PROGRESS REPORT ---
Subjective Progress Note for:: 02/22/19 Subjective:: less pains left leg/ankle wound Reason For Visit: LLE INFECTED WOUND Physical Exam Vital Signs: Temp Pulse Resp BP Pulse Ox 99.8 F 107 H 18 137/76 H 98 02/22/19 16:48 02/22/19 16:48 02/22/19 16:48 02/22/19 16:48 02/22/19 16:48 Intake & Output 02/21/19 02/22/19 02/23/19 06:59 06:59 06:59 Intake Total 1318 2190 Output Total 250 1500 Balance 1068 690 Weight 58.967 kg Exam: wound looks relatively clean. No abscess collection Palpable DPA pulse Results Laboratory Results: 02/22/19 06:09 02/22/19 06:09 02/22/19 02/22/19 02/22/19 05:31 06:09 06:09 WBC 17.3 H RBC 3.48 L Hgb 9.9 L Hct 29.4 L MCV 85 MCH 28.4 MCHC 33.6 RDW 13.4 Plt Count 429 Seg Neutrophils % 89.1 H Lymphocytes % 6.7 L Monocytes % 3.7 Eosinophils % 0.1 Basophils % 0.4 Absolute Neutrophils 15.5 H Absolute Lymphocytes 1.2 Absolute Monocytes 0.6 Absolute Eosinophils 0.0 Absolute Basophils 0.1 Sodium Potassium Chloride Carbon Dioxide Anion Gap BUN Creatinine Est GFR ( Amer) Est GFR (Non-Af Amer) Glucose Calcium Magnesium 1.7 Total Bilirubin AST ALT Alkaline Phosphatase Total Protein Albumin Stool Occult Blood NEGATIVE 02/22/19 06:09 WBC RBC Hgb Hct MCV MCH MCHC RDW Plt Count Seg Neutrophils % Lymphocytes % Monocytes % Eosinophils % Basophils % Absolute Neutrophils Absolute Lymphocytes Absolute Monocytes Absolute Eosinophils Absolute Basophils Sodium 130.9 L Potassium 3.6 Chloride 100 Carbon Dioxide 21 L Anion Gap 10 BUN 13 Creatinine 0.72 Est GFR ( Amer) > 60 Est GFR (Non-Af Amer) > 60 Glucose 113 H Calcium 8.1 L Magnesium Total Bilirubin 0.9 AST 34 ALT 32 Alkaline Phosphatase 595 H Total Protein 6.8 Albumin 2.6 L Stool Occult Blood 02/21/19 09:50 Ankle - Left Cellulitis Gram Stain - Final Impressions: Chest X-Ray 02/20/19 10:16 IMPRESSION: COPD. NO ACUTE RADIOGRAPHIC FINDING IN THE CHEST. Ankle X-Ray 02/20/19 10:56 IMPRESSION: No evidence of osteomyelitis. Assessment & Plan - Diagnosis (1) Cellulitis of left ankle Is this a current diagnosis for this admission?: Yes - Time Time Spent with patient: 15-24 minutes - Inpatient Certification Medical Necessity: Need for IV Antibiotics - Plan Summary Plan Summary: Cellulitis left ankle wound improving Continue IV antibiotics next 24-48 hrs contunue wet to dry dressings BID Patient is willing to do dressing changes by herself and willing to go back to the wound care center for follow-up. Will sign off. Arrange ff-up Wound care center in 1-2 weeks
[2019-02-23] MEDS: ATORVASTATIN CALCIUM 20 MG TABLET PO SCH ×2 (00:01→21:22)
[2019-02-23] MEDS: PANTOPRAZOLE SODIUM 40 MG TABLET.DR PO SCH (06:10)
[2019-02-23 06:21] LABS: ABSOLUTE BASOPHILS # (AUTO) 0.1 10^3/uL (0.0-0.2); ABSOLUTE EOSINOPHILS # (AUTO) 0.1 10^3/uL (0.0-0.6); ABSOLUTE LYMPHOCYTES (AUTO) 0.8 10^3/uL (0.5-4.7); ABSOLUTE MONOCYTES (AUTO) 0.7 10^3/uL (0.1-1.4); ABSOLUTE NEUT (AUTO) 11.7 10^3/uL (1.7-8.2); BASOPHILS % (AUTO) 0.5 % (0-2); EOSINOPHILS % (AUTO) 0.4 % (0-6); HEMATOCRIT 30.1 % (36.0-47.0); LYMPHOCYTES % (AUTO) 6.2 % (13-45); MEAN CORPUSCULAR HEMOGLOBIN 28.1 pg (27.0-33.4); MEAN CORPUSCULAR HGB CONC 33.3 g/dL (32.0-36.0); MEAN CORPUSCULAR VOLUME 84 fl (80-97); MONOCYTES % (AUTO) 5.3 % (3-13); PLATELET COUNT 435 10^3/uL (150-450); RED BLOOD COUNT 3.57 10^6/uL (3.72-5.28); RED CELL DISTRIBUTION WIDTH 13.2 % (11.5-14.0); SEGMENTED NEUTROPHILS % (AUTO) 87.6 % (42-78); TOTAL CELLS COUNTED % (AUTO) 100 %; WHITE BLOOD COUNT 13.4 10^3/uL (4.0-10.5)
[2019-02-23 06:32] LABS: ALANINE AMINOTRANSFERASE 32 U/L (9-52); ALBUMIN 2.9 g/dL (3.5-5.0); ALKALINE PHOSPHATASE 674 U/L (38-126); ANION GAP 9 (5-19); ASPARTATE AMINO TRANSFERASE 37 U/L (14-36); BILIRUBIN,DIRECT 0.6 mg/dL (0.0-0.4); BILIRUBIN,TOTAL 0.7 mg/dL (0.2-1.3); BLOOD UREA NITROGEN 12 mg/dL (7-20); CALCIUM 8.6 mg/dL (8.4-10.2); CARBON DIOXIDE 25 mmol/L (22-30); CHLORIDE 104 mmol/L (98-107); GLUCOSE 152 mg/dL (75-110); POTASSIUM 4.2 mmol/L (3.6-5.0); SODIUM 137.6 mmol/L (137-145); TOTAL PROTEIN 7.5 g/dL (6.3-8.2)
[2019-02-23] MEDS: ENOXAPARIN SODIUM INJ 40 MG/0.4 ML DISP.SYRIN SUBCUT SCH (10:17)
[2019-02-23] MEDS: AMLODIPINE BESYLATE 5 MG TABLET PO SCH (10:33)
[2019-02-23] MEDS: CEFTRIAXONE SODIUM 1,000 MG in DEXTROSE 5%-WATER 50 ML IV SCH (10:34)
[2019-02-23] MEDS: DOCUSATE SODIUM 100 MG CAPSULE PO SCH (10:35)
--- NOTE | 2019-02-23 10:38 | PDOC PROGRESS REPORT ---
Subjective Progress Note for:: 02/23/19 Subjective:: JAKI MCARTHUR is a 73 year old female past medical history of hypertension presented to ED complaining of on and off fever for the last 3 weeks and left lower extremity chronic wound. Stating that she has had left lower extremity anterior mas chronic ulcer and has been receiving wound care as outpatient. She is stating that it is not getting any better, and it is quite itchy with sharp pain upon moving. Apart from recent onset on and off fever over the last 3 weeks and chronic left lower extremity wound she reports to be in good health. She denies any fever, fatigue, shortness of breath, chest pain, nausea, vomiting, abdominal pain, diarrhea, constipation, cramps, history of CAD,diabetes, CVA or PAD. In ED she was found to have leukocytosis, fever and inspection of the wound showed smelling wound distal mas venous discharge. Will start on vancomycin and ceftriaxone and hospital was consulted for admission. Left lower extremity x-ray was negative for osteomyelitis. Records show that patient has been seen at [facility] and has had sudhakar ateral lower extremity Doppler on 12/2018 which was negative for DVT or any reflexes. 02/21/2019. No acute events overnight. Denies any fever, chills, nausea, vomiting, diarrhea, constipation or any urinary symptoms. P.o. tolerant and having normal bowel and bladder. Blood cultures pending at surgery has been consulted for evaluation of the left ankle. 02/22/2019. No acute events overnight. Denies any fever, chills, nausea, vomiting, diarrhea, constipation or any urinary symptoms. Right lower extremity pain has improved. 02/23/2019. No acute events overnight. Patient would like to go home tomorrow and states that she has establish outpatient wound care. As per surgery recommendation patient needs another 1 to 2 days of IV antibiotics and can be discharged home to follow-up with wound care. Denies any fever, chills, nausea, vomiting, diarrhea, constipation or any urinary symptoms. Reason For Visit: LLE INFECTED WOUND Physical Exam Vital Signs: Temp Pulse Resp BP Pulse Ox 98.2 F 84 16 135/56 H 98 02/23/19 08:50 02/23/19 08:50 02/23/19 08:50 02/23/19 08:50 02/23/19 08:50 Intake & Output 02/22/19 02/23/19 02/24/19 06:59 06:59 06:59 Intake Total 2190 300 Output Total 1500 Balance 690 300 Weight 56 kg General appearance: PRESENT: no acute distress, well-developed, well-nourished Head exam: PRESENT: atraumatic, normocephalic Respiratory exam: PRESENT: clear to auscultation sudhakar. ABSENT: rales, rhonchi, wheezes Cardiovascular exam: PRESENT: RRR. ABSENT: diastolic murmur, rubs, systolic murmur GI/Abdominal exam: PRESENT: normal bowel sounds, soft. ABSENT: distended, guarding, mass, organolmegaly, rebound, tenderness Extremities exam: PRESENT: full ROM. ABSENT: calf tenderness, clubbing, pedal edema Neurological exam: PRESENT: alert, awake, oriented to person, oriented to place, oriented to time, oriented to situation, CN II-XII grossly intact. ABSENT: motor sensory deficit Skin exam: PRESENT: other - Left anterior and medial ankle wound, looks clean with granulation tissue. No discharge or foul smell. Results Laboratory Results: 02/23/19 05:44 02/23/19 05:44 02/23/19 02/23/19 05:44 05:44 WBC 13.4 H RBC 3.57 L Hgb 10.0 L Hct 30.1 L MCV 84 MCH 28.1 MCHC 33.3 RDW 13.2 Plt Count 435 Seg Neutrophils % 87.6 H Lymphocytes % 6.2 L Monocytes % 5.3 Eosinophils % 0.4 Basophils % 0.5 Absolute Neutrophils 11.7 H Absolute Lymphocytes 0.8 Absolute Monocytes 0.7 Absolute Eosinophils 0.1 Absolute Basophils 0.1 Sodium 137.6 Potassium 4.2 Chloride 104 Carbon Dioxide 25 Anion Gap 9 BUN 12 Creatinine 0.72 Est GFR ( Amer) > 60 Est GFR (Non-Af Amer) > 60 Glucose 152 H Calcium 8.6 Magnesium 1.9 Total Bilirubin 0.7 AST 37 H ALT 32 Alkaline Phosphatase 674 H Total Protein 7.5 Albumin 2.9 L 02/21/19 09:50 Ankle - Left Cellulitis Gram Stain - Final Impressions: Chest X-Ray 02/20/19 10:16 IMPRESSION: COPD. NO ACUTE RADIOGRAPHIC FINDING IN THE CHEST. Ankle X-Ray 02/20/19 10:56 IMPRESSION: No evidence of osteomyelitis. Assessment and Plan - Diagnosis (1) Infected ulcer of skin Is this a current diagnosis for this admission?: No Plan: Polymicrobial. Infection of chronic wound of the left anterior mas and ankle. Wound culture growing pseudomonas aeruginosa, gram-positive cocci, and Proteus mirabilis. Both sensitive to quinolones. Pending sensitivity for gram-positive cocci. X-ray negative for osteomyelitis. If in doubt will obtain MRI of left lower extremity. Day 4 of IV ceftriaxone and vancomycin. Continue IV antibiotics for another 48 hours, switch to p.o. upon discharge. Pending sensitivity for gram-positive cocci's. Surgery has done a bedside I&D and recommending IV antibiotics for and wound care right now. 12/2018 patient had bilateral lower extremity venous Doppler which was negative for any DVT or reflux. A1c 5.1. CRP 195.3, ESR 118. (2) Cellulitis of left ankle Is this a current diagnosis for this admission?: Yes Plan: As above. (3) Fever Is this a current diagnosis for this admission?: No Plan: Afebrile. Leukocytosis improving , likely due to infected left lower extremity wounds. Continue empiric IV antibiotics, follow wound and blood cultures. (4) HTN (hypertension) Is this a current diagnosis for this admission?: No Plan: Euvolemic, normotensive. Continue amlodipine 5 mg p.o. daily. Adjust meds as needed. IV hydralazine as needed. (5) Hyperlipidemia Is this a current diagnosis for this admission?: Yes Plan: Start on atorvastatin 20 mg p.o. daily. Diet and lifestyle modification advised. Outpatient follow-up with PCP for LFT evaluation.
[2019-02-23 12:21] LABS: VANCOMYCIN,TROUGH 6.4 ug/mL (5.0-20.0)
[2019-02-23] MEDS: VANCOMYCIN HCL 1,000 MG in DEXTROSE 5%-WATER 250 ML IV SCH (12:21)
[2019-02-23] MEDS ORDERED: VANCOMYCIN HCL 1,250 MG in DEXTROSE 5%-WATER 250 ML IV SCH (18:00)
[2019-02-24] MEDS: PANTOPRAZOLE SODIUM 40 MG TABLET.DR PO SCH (06:20)
[2019-02-24] MEDS: AMLODIPINE BESYLATE 5 MG TABLET PO SCH (10:26)
[2019-02-24] MEDS: ENOXAPARIN SODIUM INJ 40 MG/0.4 ML DISP.SYRIN SUBCUT SCH (10:27)
[2019-02-24] MEDS: DOCUSATE SODIUM 100 MG CAPSULE PO SCH (10:27)
[2019-02-24] MEDS: CEFTRIAXONE SODIUM 1,000 MG in DEXTROSE 5%-WATER 50 ML IV SCH (10:28)
[2019-02-24 12:25] VITALS: BP 122/55
[2019-02-24] MEDS ORDERED: CIPROFLOXACIN HCL 500 MG TABLET PO ONE (12:44)
[2019-02-24 13:27] LABS: ABSOLUTE BASOPHILS # (AUTO) 0.1 10^3/uL (0.0-0.2); ABSOLUTE LYMPHOCYTES (AUTO) 1.7 10^3/uL (0.5-4.7); BASOPHILS % (AUTO) 0.4 % (0-2); EOSINOPHILS % (AUTO) 0.1 % (0-6); HEMATOCRIT 28.8 % (36.0-47.0); HEMOGLOBIN 9.8 g/dL (12.0-15.5); LYMPHOCYTES % (AUTO) 10.6 % (13-45); MEAN CORPUSCULAR HEMOGLOBIN 28.9 pg (27.0-33.4); MEAN CORPUSCULAR HGB CONC 34.1 g/dL (32.0-36.0); MEAN CORPUSCULAR VOLUME 85 fl (80-97); MONOCYTES % (AUTO) 6.2 % (3-13); PLATELET COUNT 551 10^3/uL (150-450); RED CELL DISTRIBUTION WIDTH 13.6 % (11.5-14.0); SEGMENTED NEUTROPHILS % (AUTO) 82.7 % (42-78); TOTAL CELLS COUNTED % (AUTO) 100 %; WHITE BLOOD COUNT 15.8 10^3/uL (4.0-10.5)
--- NOTE | 2019-02-27 17:34 | Left Against Medical Advice ---
Against Medical Advice Admission Date/Time: 02/21/19 14:11 Primary Care Provider: Date of Patient Emigration: 02/24/19 - Diagnosis: (1) Infected ulcer of skin Is this a current diagnosis for this admission?: Yes (2) Cellulitis of left ankle Is this a current diagnosis for this admission?: Yes (3) Fever Is this a current diagnosis for this admission?: Yes (4) HTN (hypertension) Is this a current diagnosis for this admission?: Yes (5) Hyperlipidemia Is this a current diagnosis for this admission?: Yes - Summary: Summary: Please see Admission and Progress Notes as well. GREGORIA MCARTHUR is a 73 F, who LEFT AGAINST MEDICAL ADVICE. The Patient was admitted on 02/21/19 14:11. JAKI MCARTHUR is a 73 year old female past medical history of hypertension presented to ED complaining of on and off fever for the last 3 weeks and left l ower extremity chronic wound. Stating that she has had left lower extremity anterior mas chronic ulcer and has been receiving wound care as outpatient. She is stating that it is not getting any better, and it is quite itchy with sharp pain upon moving. Apart from recent onset on and off fever over the last 3 weeks and chronic left lower extremity wound she reports to be in good health. She denies any fever, fatigue, shortness of breath, chest pain, nausea, vomiting, abdominal pain, diarrhea, constipation, cramps, history of CAD,diabetes, CVA or PAD. In ED she was found to have leukocytosis, fever and inspection of the wound showed smelling wound distal mas venous discharge. Will start on vancomycin and ceftriaxone and hospital was consulted for admission. (1) Infected ulcer of skin Polymicrobial (Pseudomonas aeruginosa, Enterococcus faecalis, Proteus mirabilis). Infection of chronic wound of the left anterior mas and ankle. Surgery consulted and patient received a bedside I&D. Please refer to surgery note. Wound culture positive for pseudomonas aeruginosa, gram-positive cocci and Proteus mirabilis. Both sensitive to quinolones. Pending sensitivity for gram- positive cocci at the time of AMA. X-ray negative for osteomyelitis. Received 5 days of IV ceftriaxone and vancomycin. Unfortunately patient is allergic to penicillins, levofloxacin and not a candidate for IV antibiotics as patient is leaving AMA. Patient said when she take levofloxacin she tends to vomit but she does not have a true allergy. Was given 1 dose of ciprofloxacin in the hospital and observed for several hours with no adverse effects. Patient was advised to wait another day because blood cultures were pending and also she still has significant leukocytosis. Decided leaving AMA stating that she needs to go to [place] to attend a wedding. Her son who was also present at the bedside could not convince her to stay. Patient was given ciprofloxacin 500 mg p.o. daily for another 6 days. Patient stated that she has good outpatient wound care and she has all her wound care materials. She stated that she will follow-up with wound care as outpatient. She was advised to come back if her wound does not get better or gets worse. 12/2018 patient had bilateral lower extremity venous Doppler which was negative for any DVT or reflux. A1c 5.1. CRP 195.3, ESR 118. Note: I called back patient with the numbers provided under emergency contacts to let her know about Enterococcus faecalis positivity and the fact that she needed more antibiotics. Unfortunately no 1 answered the phone. I left a message waiting for callback. (2) Cellulitis of left ankle As above. (3) Fever Afebrile. Leukocytosis improving , likely due to infected left lower extremity wounds. Continue empiric IV antibiotics, follow wound and blood cultures. (4) HTN (hypertension) Euvolemic, normotensive. Continue amlodipine 5 mg p.o. daily. Adjust meds as needed. IV hydralazine as needed. (5) Hyperlipidemia Start on atorvastatin 20 mg p.o. daily. Diet and lifestyle modification advised. Outpatient follow-up with PCP for LFT evaluation.
== END 2019-02-24 16:10 | disposition left against medical advice (07) | DRG 603 ==
LOC: ER 08:50 → EH 12:40 → OBSVTOIN 12:40 → INTOOBSV 12:40 → 2N 16:18 → OBSVTOIN 02-21 14:11
PROVIDERS: ADMIT Internal Medicine; ATTEND Internal Medicine
PROC: 0HBNXZZ Excision of Left Foot Skin, External Approach (ICD-10-PCS; principal; 2019-02-21)
DX: L03.116 Cellulitis of left lower limb (principal); L97.322 Non-pressure chronic ulcer of left ankle with fat layer exposed; I96 Gangrene, not elsewhere classified; I10 Essential (primary) hypertension; E78.5 Hyperlipidemia, unspecified; M54.32 Sciatica, left side; B96.5 Pseudomonas (aeruginosa) (mallei) (pseudomallei) as the cause of diseases classified elsewhere; B96.4 Proteus (mirabilis) (morganii) as the cause of diseases classified elsewhere; B95.2 Enterococcus as the cause of diseases classified elsewhere; Z88.0 Allergy status to penicillin; Z53.21 Procedure and treatment not carried out due to patient leaving prior to being seen by health care provider
CPT/HCPCS: 36415; 71046; 80048; 80053; 80061; 80202; 81001; 82272; 82803; 83036; 83605; 83690; 83735; 85025; 85652; 86140; 87040; 87070; 87077; 87086; 87088; 87186; 87205; 99284; G0378; J0696; J1650; J3370; J3490; J7030; J7060